=== PATIENT | female | born 1945 | race Caucasian/White ===

== ENCOUNTER 2016-06-05 08:30 | Outpatient (RCR) | payer OTHER | END 2016-06-26 | disposition home or self-care (01) | LOC: PTY 08:30 | DX: M54.17 Radiculopathy, lumbosacral region (principal); E03.8 Other specified hypothyroidism; M54.16 Radiculopathy, lumbar region; M47.816 Spondylosis without myelopathy or radiculopathy, lumbar region; E11.9 Type 2 diabetes mellitus without complications; I10 Essential (primary) hypertension | CPT/HCPCS: 97110; 97140; 97161; G0283 ==

== ENCOUNTER 2016-06-29 08:18 | Outpatient (RCR) | payer OTHER | END 2016-07-27 | disposition home or self-care (01) | LOC: PTY 08:18 | DX: M54.17 Radiculopathy, lumbosacral region (principal); E03.8 Other specified hypothyroidism; M54.16 Radiculopathy, lumbar region; M47.816 Spondylosis without myelopathy or radiculopathy, lumbar region; E11.9 Type 2 diabetes mellitus without complications; I10 Essential (primary) hypertension | CPT/HCPCS: 97110; 97140; G0283 ==